=== PATIENT | female | born 1965 | race Caucasian/White ===

== ENCOUNTER → 2024-01-28 17:19 | Outpatient (REF) | payer OTHER, SELFPAY | LOC: RAD 17:19 | PROVIDERS: ATTENDING PHYSICIAN Nurse Practitioner | DX: M25.552 Pain in left hip (principal) | CPT/HCPCS: 73502 ==

== ENCOUNTER → 2024-12-17 17:24 | Outpatient (REF) | payer OTHER, SELFPAY | LOC: WDC 17:24 | PROVIDERS: ATTENDING PHYSICIAN Nurse Practitioner | DX: Z12.31 Encounter for screening mammogram for malignant neoplasm of breast (principal) | CPT/HCPCS: 77063; 77067 ==